=== PATIENT | male | born 1995 | race Caucasian/White ===

== ENCOUNTER 2018-05-13 16:18 | Emergency (ER) | payer BC, SELFPAY ==
[2018-05-13 16:19] VITALS: BP 143/80; PULSE 88; RESP 16; TEMP 36.6; O2SAT 99; BMI 29.1
--- NOTE | 2018-05-13 16:49 | ED.DCSUM_ITS ---
- ER Visit Summary Date of Service: 05/13/18 Chief Complaint: Left third finger injury History of Present Illness: The patient is a 22 M presents to the emergency department approximately 14 hours after injuring his left hand. Patient was working on his motorcycle. He was changing the rotors. He states that his hand slipped and he cut his middle finger. He is right-hand dominant. He states that he put a dressing on it, but when he remove the gauze this morning it started bleeding again. He presented here for further evaluation. He denies any numbness or tingling in the hand. He denies any other injury. Physical Examination: Exam is relatively unremarkable. Patient does have diminished flexion of 6 superficialis and profundus. There is a 1-1/2 cm full- thickness laceration just below the PIP of the left third. 2 point determination is preserved. Cap refill less than 2 seconds. Test Results: [] Emergency Department Course and Treatment: The patient was right on the border of appropriate closure, but he is still having bleeding from the area. He underwent digital block. The wound was irrigated and explored. The patient does have flexor tendon laceration completely through. The wound was aggressively irrigated and debris was removed. There was still some contamination. As this does involve laceration through the tendon, I did elect to not close this primarily. Bacitracin dressing with Adaptic was placed. I did discuss the patient with hand surgery, Dr. Beltre< at [facility]. He was placed in a clamdigger splint and we put on oral antibiotics. I did certified travel counselor the patient that this is going to need surgical fixation. He will be discharged with outpatient follow-up. Treatment Plan: [] Disposition: Discharge Impression: 1. Left third finger laceration with flexor tendon involvement This note was generated with [employer] dictation software. It may contain incorrect words, spelling, and punctuation that were not noted in review of the chart prior to signing ED Disposition - Plan for ED Patient: Chief Complaint: Laceration Instructions: ED Laceration Hand Prescriptions: Clindamycin [Cleocin] 300 mg PO 4X/DAY #80 cap Additional Instructions: Follow up with Dr. Del Parada. Phone number is [phone]. He wants you to call first thing on Tuesday and he wants to see you in the [facility] office Tuesday. The address is [address] [place] [address]
[2018-05-13] MEDS: Diphth,Pertuss(Acell),Tet Vac 0.5 ML Vial IM (17:28)
[2018-05-13] MEDS: Bupivacaine Mpf 0.5% 30 ML VIAL INFILT (18:08)
[2018-05-13] MEDS: Clindamycin HCl 150 MG Capsule 300 MG PO (19:08)
== END 2018-05-13 19:10 | disposition home or self-care (01) ==
PROVIDERS: Emergency Provider Emergency Medicine; Family Provider Family Medicine; PCP Family Medicine
DX: S66.123A Laceration of flexor muscle, fascia and tendon of left middle finger at wrist and hand level, initial encounter (principal); W26.8XXA Contact with other sharp object(s), not elsewhere classified, initial encounter; Y93.9 Activity, unspecified; Y92.89 Other specified places as the place of occurrence of the external cause; Y99.9 Unspecified external cause status; Z72.0 Tobacco use
CPT/HCPCS: 90471; 90715; 99283

== ENCOUNTER 2018-06-21 11:30 | Outpatient (RCR) | payer BC, SELFPAY ==
--- NOTE | 2018-05-22 18:37 | HP.OTEVAL ---
Patient's Visit Information WINNIE LOPEZ is a 22 year old M, referred to Occupational Therapy by Out of Town Doctor, with a diagnosis of laceration left middle finger tendon/nerve laceration. Date of Evaluation: 05/22/18 Occupational Therapist: Kaela Victoria, OTR/L, CHT - Subjective Subjective: Pt states he was working on his bike and sliced his hand. DOI 05-14-18 and DOS 05-16-18 pt repair of left middle finger radial digital nerve with conduit, repair of left middle finger zone 2 flexor digitorum profundus tendon, excixion left middle finger radial slip zone 2 fleor digitorum superficialis tendon. pt presents with sx dressing on in need of custom orthosis. - Pain left hand 2 Pain Intensity Range: 0, 3, 4 - Strength Strength Comments: will test later date - DASH-Disabilities of Arm, Shoulder& Hand DASH Sum: 93 - Goals Goal:100% adherence to protocol: Yes Comment: Zone 2 FDP Goal:Daily scar massage when approriate: Yes Goal:ROM equal to unaffected hand: Yes Goal:Supervisor Electronic Testing/Pinch strength at least 75% of unaffected hand: Yes Goal:No pain with affected hand use: Yes Goal:PIP Circumferences equal to unaffected hand: Yes Goal:Full use of affected hand in daily activities including: Yes Goal:Improvement in sensation documented by [place]: Yes Goal:Decrease scar hypersensitivity: Yes - Rehabilitation General Assessment: S/P left middle finger radial digital nerve with conduit, left MF zone 2 flexor digitorum profundus tendon, excision left middle finger radial slip zone 2 flexor digittorum superficialis tendon. Pt attends therapy session today for custom orthosis to positon left wrist/hand and provide protection to repaired tendon and nerve. pt demo need for skilled OTR/L, CHT services 1-2x week for 8-12 weeks to return pt to PLOF. Rehabilitation Potential: Good - Anticipated Interventions Anticipated Interventions: Early Active Motion, A/AAROM/PROM, Strengthening, Edema Control, Scar Care, Triggerpoint Release, Sensory Retraining, Wound Care, Modalities, Orthoses, Fine Motor Coord/Bryan - Visit Plan Frequency: 1x/Week Duration: 4 Weeks TEXT: Thank you for the opportunity to evaluate your patient. For Medicare and Medicare HMO plans, please review the plan of care and approve it. It will need to be FAXED BACK to us at [phone] for Medicare purposes. Please let me know if there are questions or concerns regarding this plan of care. Physician Signature: Date:
--- NOTE | 2018-09-05 07:59 | HP.OT.NRP ---
HP - Discharge Summary - Patient Information WINNIE LOPEZ was seen in my office for initial evaluation on 05/22/18. The following Plan of Care was established for this patient: Initial Frequency: 1x/Week Initial Duration: 4 Weeks Plan: cont with 6 week protocol - Anticipated Interventions Anticipated Interventions: Early Active Motion, A/AAROM/PROM, Strengthening, Edema Control, Scar Care, Triggerpoint Release, Sensory Retraining, Wound Care, Modalities, Orthoses, Fine Motor Coord/Bryan This patient was last seen in our office 06/21/18. Pertinent comments regarding their Occupational therapy will appear below: pt was seen for 3 OT sessions following a flex tendon repair. pt was last seen at his 5 week s/p. pt returned to and has not returned to therapy at this time. At his last visit he was ready to return to work- unsure if released him to do so- pt d/c due to non attendance. At this point I will be discontinuing this patient from occupational therapy. I would be happy to see this patient again in the future if found appropriate by the physician. Thank you! Kaela Victoria, OTR/L, CHT
== END 2018-06-21 19:00 | disposition home or self-care (01) ==
LOC: OT 11:30
PROVIDERS: Family Provider Family Medicine; PCP Family Medicine
DX: S61.213D Laceration without foreign body of left middle finger without damage to nail, subsequent encounter (principal); S66.922D Laceration of unspecified muscle, fascia and tendon at wrist and hand level, left hand, subsequent encounter; S64.40XD Injury of digital nerve of unspecified finger, subsequent encounter
CPT/HCPCS: 97035; 97140; 97165; 97166; 97760

== ENCOUNTER → 2020-08-08 | Outpatient (CLI) | payer BC, OTHER, SELFPAY | END | disposition home or self-care (01) | PROVIDERS: PCP Family Medicine; Referring Provider Registered Nurse; Visit Provider Registered Nurse | DX: J06.9 Acute upper respiratory infection, unspecified (principal) | CPT/HCPCS: 87635; U0003 ==

== ENCOUNTER → 2020-11-04 18:09 | Outpatient (CLI) | payer BC, OTHER, SELFPAY | PROVIDERS: PCP Family Medicine; Referring Provider Registered Nurse; Visit Provider Registered Nurse | DX: Z20.828 Contact with and (suspected) exposure to other viral communicable diseases (principal) | CPT/HCPCS: 87635; U0003 ==